=== PATIENT | female | born 1990 | race Caucasian/White ===

== ENCOUNTER 2022-11-18 11:29 | Inpatient (IN) | payer MEDICAID ==
[~2022-11-18] VITALS: Ht 177.8 cm; Wt 72.6 kg
[2022-11-18 11:54] VITALS: BP 91/54; PULSE 92; RESP 22; TEMP 98; O2SAT 98
[2022-11-18] MEDS ORDERED: ONDANSETRON 4 MG/2 ML VIAL IVP ONE ×2 (12:00→15:45)
[2022-11-18] MEDS ORDERED: NACL 0.9% 1,000 ML IV ONE (12:00)
[2022-11-18] MEDS ORDERED: MORPHINE SULFATE 4 MG/ML SYR IVP ONE ×3 (12:00→15:20)
[2022-11-18 13:02] LABS: BASOPHILS % (AUTO) 0.3 % (0.0-2.0); EOSINOPHILS % (AUTO) 0.2 % (0.0-4.0); HEMATOCRIT 35.5 % (36-48); HEMOGLOBIN 11.9 g/dL (12.0-16.0); LYMPHOCYTES # (AUTO) 0.5 K/uL (2.5-16.5); LYMPHOCYTES % (AUTO) 4.5 % (20.5-51.1); MEAN CORPUSCULAR HEMOGLOBIN 28 pg (27-31); MEAN CORPUSCULAR HGB CONC 33 g/dL (33-37); MEAN CORPUSCULAR VOLUME 82.6 fL (80-94); MONOCYTES # (AUTO) 0.4 K/uL (0.8-1.0); MONOCYTES % (AUTO) 3.7 % (1.7-9.3); NEUTROPHILS # (AUTO) 9.8 K/uL (1.8-7.7); NEUTROPHILS % (AUTO) 91.3 % (42.2-75.2); PLATELET COUNT (AUTO) 325 K/uL (140-450); RED CELL DISTRIBUTION WIDTH 14.1 % (11.6-13.7); WHITE BLOOD COUNT (AUTO) 10.7 K/uL (4.8-10.8)
[2022-11-18 13:21] LABS: ALBUMIN 3.6 g/dL (3.4-5.0); ANION GAP 17.6 (8-16); CALCIUM 9.5 mg/dL (8.5-10.1); CREATININE 0.9 mg/dL (0.6-1.3); POTASSIUM 3.6 mmol/L (3.5-5.1); TOTAL BILIRUBIN 0.5 mg/dL (0.0-1.0); TOTAL PROTEIN, SERUM 7.4 g/dL (6.4-8.2)
[2022-11-18 15:03] LABS: APPEARANCE,URINE CLOUDY (CLEAR); BILIRUBIN,URINE NEGATIVE (NEGATIVE); BLOOD, URINE NEGATIVE (NEGATIVE); COLOR,URINE YELLOW (YELLOW); LEUKOCYTE ESTERASE ,URINE 2+ (NEGATIVE); NITRITE, URINE NEGATIVE (NEGATIVE); PROTEIN,URINE NEGATIVE (NEGATIVE); UGLUCOSE NEGATIVE (NEGATIVE)
[2022-11-18 15:16] LABS: RBC,URINE 0-5 /HPF (0-5)
[2022-11-18 15:17] LABS: BACTERIA,URINE 10-30 (MOD) /HPF (None Seen); SQUAMOUS EPITHELIAL CELL,UR 0-3 (FEW) /LPF (0-3 (FEW))
[2022-11-18] MEDS ORDERED: fentaNYL citrate 0.05 MG/ML VIAL IVP ONE (15:50)
[2022-11-18] MEDS ORDERED: ACETAMINOPHEN 325 MG TAB PO PRN (18:00)
[2022-11-18] MEDS ORDERED: MORPHINE SULFATE 2 MG/ML SYR IVP PRN (18:00)
[2022-11-18] MEDS ORDERED: cefTRIAXone 1,000 MG VIAL ONE (18:09)
[2022-11-18] MEDS: DEXT 5% / NACL 0.9% 1,000 ML IV SCH ×2 (18:15→19:07)
[2022-11-18] MEDS: HYDROmorphone PFS 2 MG/ML SYR IVP PRN ×2 (19:03→23:59)
[2022-11-18] MEDS: ONDANSETRON 4 MG/2 ML VIAL IVP PRN ×2 (19:03→23:58)
[2022-11-18] MEDS ORDERED: FENTANYL C 0.05 MG/HR PATCH TD SCH (19:40)
[2022-11-18 19:49] VITALS: BP 95/60; PULSE 71; RESP 18; TEMP 97.2; O2SAT 100
[2022-11-18] MEDS ORDERED: MORPHINE SULFATE 2 MG/ML SYR IVP ONE (21:10)
[2022-11-19 04:00] VITALS: BP 110/66; PULSE 88; RESP 16; TEMP 98.5; O2SAT 99
[2022-11-19] MEDS: HYDROmorphone PFS 2 MG/ML SYR IVP PRN ×2 (04:03→09:05)
[2022-11-19] MEDS ORDERED: PANTOPRAZOLE 40 MG INJ VIAL ONE (04:27)
[2022-11-19] MEDS: DEXT 5% / NACL 0.9% 1,000 ML IV SCH (04:38)
[2022-11-19 06:53] LABS: ANION GAP 13.1 (8-16); CALCIUM 8.5 mg/dL (8.5-10.1); CARBON DIOXIDE 24.8 mmol/L (21-32); CREATININE 0.8 mg/dL (0.6-1.3); POTASSIUM 3.9 mmol/L (3.5-5.1)
[2022-11-19 07:04] LABS: HEMATOCRIT 35.6 % (36-48); HEMOGLOBIN 11.8 g/dL (12.0-16.0); LYMPHOCYTES # (AUTO) 0.5 K/uL (2.5-16.5); MEAN CORPUSCULAR HEMOGLOBIN 28 pg (27-31); MEAN CORPUSCULAR HGB CONC 33 g/dL (33-37); MEAN CORPUSCULAR VOLUME 83.7 fL (80-94); NEUTROPHILS # (AUTO) 14.9 K/uL (1.8-7.7); PLATELET COUNT (AUTO) 332 K/uL (140-450); RED BLOOD CELL COUNT(AUTO) 4.26 MIL/uL (4.20-5.40); RED CELL DISTRIBUTION WIDTH 14.6 % (11.6-13.7)
[2022-11-19 07:41] LABS: WHITE BLOOD COUNT (AUTO) 16.4 K/uL (4.8-10.8)
[2022-11-19 07:47] VITALS: PULSE 87; RESP 20; O2SAT 98
[2022-11-19 08:00] VITALS: PULSE 90; RESP 20; O2SAT 100
[2022-11-19] MEDS: ONDANSETRON 4 MG/2 ML VIAL IVP PRN (08:26)
[2022-11-19] MEDS ORDERED: PANTOPRAZOLE 40 MG INJ VIAL IVP SCH (09:00)
[2022-11-20 09:07] LABS: CARCINOEMBRYONIC AG <0.6 ng/mL (0.0-4.7)
== END 2022-11-19 10:45 | disposition left against medical advice (07) | DRG 694 ==
LOC: MED 11:29 → MTU 17:58
PROVIDERS: ADMIT Internal Medicine; ATTEND Internal Medicine
DX: D3A.098 Benign carcinoid tumors of other sites (principal); R65.11 Systemic inflammatory response syndrome (SIRS) of non-infectious origin with acute organ dysfunction; N17.9 Acute kidney failure, unspecified; D28.7 Benign neoplasm of other specified female genital organs; D48.1 Neoplasm of uncertain behavior of connective and other soft tissue; N83.202 Unspecified ovarian cyst, left side; Z53.29 Procedure and treatment not carried out because of patient's decision for other reasons; J45.909 Unspecified asthma, uncomplicated; K59.00 Constipation, unspecified; Z90.49 Acquired absence of other specified parts of digestive tract
CPT/HCPCS: 36415; 76856; 80048; 80053; 81001; 82378; 83605; 83690; 84703; 85025; 86140; 86304; 87040; 87081; 87086; 96374; 96375; 96376; 99285; C9113; J0696; J0713; J1170; J2270; J2405; J3010; Q0092; Q9967